=== PATIENT | male | born 1995 | race Caucasian/White ===

== ENCOUNTER 2016-07-22 15:00 | Emergency (ER) | payer SELFPAY ==
[~2016-07-22] VITALS: Ht 167.6 cm; Wt 61.2 kg
[2016-07-22 15:00] VITALS: BP 151/98; PULSE 70; RESP 15; TEMP 98.7; O2SAT 100
--- NOTE | 2016-07-22 15:00 | NUR ---
Patient to ER H1, Dr. Cabrera examining pt in [facility] [place]
== END 2016-07-22 15:33 ==
LOC: SED 15:00
DX: S80.01XA Contusion of right knee, initial encounter (principal); S20.20XA Contusion of thorax, unspecified, initial encounter; R03.0 Elevated blood-pressure reading, without diagnosis of hypertension; J45.909 Unspecified asthma, uncomplicated; Y04.0XXA Assault by unarmed brawl or fight, initial encounter; Y93.89 Activity, other specified; Y99.8 Other external cause status; Y92.89 Other specified places as the place of occurrence of the external cause
CPT/HCPCS: 71100; 73560-TC; 99284